=== PATIENT | female | born 1955 | race Caucasian/White ===

== ENCOUNTER 2023-10-25 09:38 | Emergency (ER) | payer MEDICARE, OTHER, SELFPAY ==
[2023-10-25 09:40] VITALS: BP 145/76
[2023-10-25 09:50] VITALS: BMI 29.6
--- NOTE | 2023-10-25 10:31 | EDRN ---
Dr. Amos in room w/ pt at this time.
--- NOTE | 2023-10-25 10:34 | ED.GENMED ---
History of Present Illness
General
Chief Complaint: Fall
Source: patient
Time Seen by Provider: 10/25/23 09:57
Travel History
Have you had any contact with someone who has COVID-19?: No
Do you have any symptoms of coronavirus? Fever > 100 degrees, chills, cough, shortness of breath, sore throat, loss of taste or smell, muscle aches, or headache?: No
History of Present Illness
History of Present Illness:
68-year-old female presents to the emergency room for evaluation after suffering a fall today. Patient states she was at the bus stop with her grandchildren when she bent over to pick up attendant both bags. She fell forward struck her left face and head.
No loss of consciousness but she felt dazed. She feels very tired. In addition to the above fall the patient's been feeling very weak. She has had a cough for the past couple weeks. The cough has been keeping her up at night. Has been seen by
her primary care doctor for this. She had pulmonary function test recently which she was told were normal.
Past History
Past History
ED Past Medical History: Other
ED Past Surgical History: Negative Cardiac
Social History
Tobacco: Non-smoker
Alcohol: None
Drug: None
Personal:
Living: with family
Employment: Not employed
Family History
Family History: Other (Noncontributory)
Phy Exam
Physical Exam
Physical Exam:
General: Awake, Alert, Oriented X3. No acute distress.
Vitals: unremarkable
Head: Atraumatic. Ecchymosis and abrasion noted right forehead and periorbital region
Eyes: Pupils equal, EOMI
Throat: Airway intact, no exudates
Neck: Trachea midline
Lungs: X-ray wheezing bilaterally
Heart: Regular rate, no murmurs
Abd: Soft, Nontender, No pulsatile mass
Neuro: Cranial nerves intact, muscle strength equal bilaterally, cerebellar exam normal
Skin: Warm, dry, no rash
Extremities: pulses equal b/l, no edema
Course
Orders/Labs/Results
Orders:
Orders
10/25/23 10:32
CT Facial Bones W/o Iv Contras Urgent
Comment:
Reason For Exam: fall, head/facial trauma
10/25/23 10:33
CT Head W/o Iv Contrast Urgent
Comment:
Reason For Exam: fall, head/facial trauma
CR Chest - 2 Views Urgent
Comment:
Reason For Exam: cough, sob
10/25/23 10:34
Ipratropium/Albuterol Sulfate [Duoneb] 3 ml INH R NOW ONE
10/25/23 11:06
COVID-19 Antigen Urgent
Source: Nasal Swab
Influenza A+B Rapid Molecular Urgent
ALEJO Source: Nasal Swab
Specimen Description:
10/25/23 11:45
Amoxicillin 875 mg/Clav 125 mg [Augmentin 875 mg/125 mg] 1 tablet PO NOW STA
Vital Signs
Initial and Last Documented VS:
Initial Vital Signs
Temp Pulse Resp BP Pulse Ox
98.2 F 76 16 145/76 98
10/25/23 09:40 10/25/23 09:40 10/25/23 09:40 10/25/23 09:40 10/25/23 09:40
Last Documented Vital Signs
Temp Pulse Resp BP Pulse Ox
98.2 F 78 16 143/75 95
10/25/23 09:40 10/25/23 12:10 10/25/23 12:10 10/25/23 12:10 10/25/23 12:10
MDM/Problems Addressed
Differential Diagnosis Includes:
Patient bone fracture, subdural, contusion, concussion
MDM/Problems Addressed:
Patient presents with injury. Imaging shows no intracranial facial show findings which might reflect acute nasal bone fracture. Patient states she does have history of a nasal bone injury years ago but this is not an acute finding on the CAT scan.
Imaging is also show sinusitis. Patient has been suffering with symptoms of sinusitis we will cover this with Augmentin. Patient stable for discharge home. Chest x-ray shows no acute abnormality
*Radiology
Radiology exam reviewed: radiology read reviewed
*Pulse Oximetry
Patient hypoxic: no
*Critical Care Note
Total Time (30-74mins, 75-104mins- exclusive of procedures): Not Applicable
ED Attending Note
-
Portions of this chart may have been created with voice recognition software.� Occasional wrong word or��sound alike� substitutions may have occurred due to the inherent limitations of voice recognition software.
Discharge Plan
Departure
Patient Disposition: Home (Routine Discharge)
Date of Disposition: 10/25/23
Time of Disposition: 11:46
Patient with high blood pressure during this ER visit?: Yes
Condition: Good
Discharge Problem:
Head injury, Contusion of face, Sinusitis, acute
Instructions: Head Injury in Adults (DC), Sinusitis, Adult ED
Prescriptions:
New
amoxicillin-pot clavulanate 875-125 mg tablet
1 tab PO BID Qty: 14 0RF
albuterol sulfate 90 mcg/actuation HFA aerosol inhaler
2 puff inhalation Q6H PRN (Reason: shortness of breath or wheezing) Qty: 8.5 0RF
fluticasone propionate 220 mcg/actuation HFA aerosol inhaler
1 inh inhalation ONCE Qty: 12 0RF
No Action
allopurinol 100 MG tablet
100 mg PO DAILY
omeprazole 40 MG capsule,delayed release(DR/EC)
40 mg PO DAILY
fluoxetine 20 MG capsule
40 mg PO DAILY
atenolol 50 MG tablet
100 mg PO DAILY
loratadine 10 MG tablet
10 mg PO DAILY
L.acidoph, paracasei,B. lactis 1 EACH capsule
1 cap PO DAILY
acetaminophen 325 MG tablet
325 mg PO PRN PRN (Reason: pain)
Bactrim:
sulfamethoxazole-trimethoprim 1 TABLET tablet
1 tab PO BID Qty: 14 0RF
Referrals:
Mary Ann Hloden MD [Family Provider] -
Interventions
Interventions:
*Risk Screen - Suicide Last Done: 10/25/23 09:50
*General Assessment Last Done: 10/25/23 09:50
*Neglect/Abuse Screening Last Done: 10/25/23 09:50
ED- Fall Risk Assessment Last Done: 10/25/23 09:50
*ED COVID-19 Vaccine History Last Done: 10/25/23 09:50
*Nursing Disposition Last Done: 10/25/23 12:10
ED-Musculoskeletal Assessment Last Done: 10/25/23 09:50
ED- Neurological Assessment Last Done: 10/25/23 09:50
ED-Skin Assessment Last Done: 10/25/23 09:50
Discharge Date and Time
Discharge Date/Time: 10/25/23 12:12
[2023-10-25] MEDS: DUONEB 3 ML INH (11:14)
[2023-10-25 11:15] VITALS: BP 153/81
[2023-10-25 11:27] LABS: COVID-19 Antigen Negative (Negative)
[2023-10-25] MEDS: AUGMENTIN 875 MG/125 MG 1 TABLET PO (12:06)
[2023-10-25 12:10] VITALS: BP 143/75
== END 2023-10-25 12:12 | disposition home or self-care (01) ==
LOC: EMR 09:38
PROVIDERS: EMERGENCY PHYSICIAN Emergency Medicine; FAMILY PHYSICIAN Family Medicine
DX: J01.90 Acute sinusitis, unspecified (principal); S00.83XA Contusion of other part of head, initial encounter; S00.81XA Abrasion of other part of head, initial encounter; S09.90XA Unspecified injury of head, initial encounter; R05.9 Cough, unspecified; R53.1 Weakness; W18.39XA Other fall on same level, initial encounter; Y92.89 Other specified places as the place of occurrence of the external cause; R03.0 Elevated blood-pressure reading, without diagnosis of hypertension; Z91.041 Radiographic dye allergy status
CPT/HCPCS: 99284; 94640; 70450; 70486; 71046; 87502; 87811

== ENCOUNTER 2024-09-14 18:17 | Emergency (ER) | payer MEDICARE, OTHER, SELFPAY ==
[2024-09-14 18:26] VITALS: BP 113/69
[2024-09-14 18:55] LABS: % Basophils 0.1 % (0-2); % Immature Granulocytes 0.5 % (0-0.5); % Lymphocytes 11.5 % (20.5-51.1); % Monocytes 4.3 % (1.7-9.3); % Neutrophils 83.6 % (42.2-75.2); Absolute Monocytes 0.4 10^3/uL (0.1-0.6); Absolute Neutrophils 6.9 10^3/uL (1.4-6.5); Hematocrit 37.9 % (37.0-47.0); Hemoglobin 13.4 g/dL (12.0-16.0); Mean Corp Hgb Conc. 35.4 g/dL (33.0-37.0); Mean Corpuscular Hgb 32.4 pg (27.0-31.0); Mean Corpuscular Volume 91.5 fL (81.0-99.0); Nucleated Red Blood Cells % 0 %; Platelet Count 198 10^3/uL (130-400); Red Blood Cell Count 4.14 10^6/uL (4.20-5.40); Red Cell Dist. Width 13.2 % (11.5-14.5); White Blood Cell Count 8.2 10^3/uL (4.8-10.8)
[2024-09-14 19:09] LABS: ALT (SGPT) 31 U/L (0-35); AST (SGOT) 40 U/L (14-36); Albumin 4.1 g/dl (3.5-5.0); Alkaline Phosphatase 77 U/L (38-126); Blood Urea Nitrogen 13 mg/dl (7-17); Calcium 8.8 mg/dl (8.4-10.2); Carbon Dioxide 24 mmol/L (22-30); Chloride 97 mmol/L (98-107); Glucose 140 mg/dl (70-99); Potassium 3.4 mmol/L (3.5-5.1); Sodium 132 mmol/L (135-145); Total Bilirubin 0.7 mg/dl (0.2-1.3); Total Protein 6.5 g/dl (6.3-8.2); eGFR > 60.00
[2024-09-14 19:17] LABS: COVID-19 Antigen Negative (Negative)
[2024-09-14 22:45] VITALS: BP 115/82
--- NOTE | 2024-09-14 23:27 | ED.GENMED ---
History of Present Illness
General
Chief Complaint: Cold/Flu/URI Symptoms
Source: patient
Exam Limitations: none
Time Seen by Provider: 09/14/24 23:08
Nursing documentation reviewed up to this point in time: agreed with
History of Present Illness
History of Present Illness:
Pleasant 69-year-old female presents to department with bodyaches, cough and generalized weakness. She states that this has been present for the last week. Her kids and grandchildren live with her and states that they all have similar complaints.
She was at urgent care yesterday and tested negative for flu and RSV. Today she went to her physician and diagnosed with a viral illness. She came into the emergency department because she is not improving. She denies fever or productive cough.
She is a non-smoker.
Past History
Past History
ED Past Medical History: Other
ED Past Surgical History: Negative Cardiac
Social History
Tobacco: Non-smoker
Alcohol: None
Drug: None
Personal:
Living: with family
Employment: Not employed
Family History
Family History: Other (Noncontributory)
Review of Systems
Review of Systems
Allergies reviewed?: Yes
All Other Systems: ROS reviewed and negative except as documented in HPI and ROS
Constitutional: Reports no symptoms
EENT: Reports no symptoms
Respiratory: Reports cough; Denies trouble breathing
Cardiac: Denies chest pain
ABD/GI: Reports no symptoms
: Reports no symptoms
Musculoskeletal: Reports no symptoms
Skin: Reports no symptoms
Neurological: Reports weakness
Endocrine: Reports no symptoms
Hematologic/Lymphatic: Reports no symptoms
Psychiatric: Reports no symptoms
Phy Exam
General Physical Exam
General Presentation: well appearing and no apparent distress
General Skin: warm and dry
General Habitus: normal
General Mental: alert
General Hydration: appears well hydrated
ENT Exam
ENT Exam: EOMI, pharynx normal, neck supple and normocephalic
Eye Exam
Eye Exam: PERRL, cornea clear and conjunctiva normal
Cardiovascular Exam
Cardiovascular Exam: regular rate/rhythm, no edema, no murmur and normal peripheral pulses
Pulmonary Exam
Pulmonary Exam: no respiratory distress and generalized wheezing
Cough: coarse cough
Respirations: controlled ventilations
Breath Sounds: Wheeze: left lower and right lower
Gastrointestinal Exam
Gastrointestinal Exam: normal bowel sounds, non tender, soft, no organomegaly, no pulsatile mass and non distended
Neurological Exam
Neurological Exam: alert, oriented x3, no motor deficits and speech normal
Musculoskeletal Exam
Musculoskeletal Exam: full ROM and no edema
Skin Exam
Skin Exam: normal color, warm/dry, no rash and no petechia
Psychiatric Exam
Psychiatric Exam: normal mood/affect
Course
Orders/Labs/Results
Orders:
Orders
09/14/24 18:42
COVID-19 Antigen Urgent
Source: Nasal Swab
Complete Blood Count/With Diff Urgent
Comprehensive Metabolic Panel Urgent
Influenza A+B Rapid Molecular Urgent
ALEJO Source: Nasal Swab
Specimen Description:
09/14/24 23:11
Urinalysis Reflex To Culture Urgent
Date Specimen was Collected: 09/15/24
Time Specimen was Collected: 02:38
0.9% Sodium Chloride 1000 ml [Nss] 1,000 ml IV BOLUS
09/14/24 23:27
CR Chest - 2 Views Urgent
Comment:
Reason For Exam: cough
09/15/24 02:42
Urine Microscopic Reflex Cult Urgent
Urine Culture Urgent
ALEJO Source: U
Specimen Description:
Date Specimen was Collected: 09/15/24
Time Specimen was Collected: 02:38
09/15/24 03:40
Fosfomycin [Monurol] 3 gm PO ONCE ONE
Abnormal Lab Results
09/14/24 09/15/24
18:42 02:42
RBC 4.14 L 10^6/uL
(4.20-5.40)
MCH 32.4 H pg
(27.0-31.0)
Absolute Neuts (auto) 6.9 H 10^3/uL
(1.4-6.5)
Absolute Lymphs (auto) 1.0 L 10^3/uL
(1.2-3.4)
Neutrophils % 83.6 H %
(42.2-75.2)
Lymphocytes % 11.5 L %
(20.5-51.1)
Sodium 132 L mmol/L
(135-145)
Potassium 3.4 L mmol/L
(3.5-5.1)
Chloride 97 L mmol/L
(98-107)
Glucose 140 H mg/dl
(70-99)
AST 40 H U/L
(14-36)
Ur Occult Blood Reflex 2+ A
(Negative)
Urine Nitrite (Reflex) Positive A
(Negative)
Leukocyte Esterase Rfl 3+ A
(Negative)
Urine RBC 3-6 A /HPF
(0-2)
Urine WBC (Reflex) 70-80 A /HPF
(0-5)
Urine Bacteria (Reflex) Many A
(Negative)
Urine Albumin (Reflex) 1+ A
(Neg - Trace)
09/14/24 18:42
09/14/24 18:42
Vital Signs
Initial and Last Documented VS:
Initial Vital Signs
Temp Pulse Resp BP Pulse Ox
99.5 F 79 16 113/69 98
09/14/24 18:26 09/14/24 18:26 09/14/24 18:26 09/14/24 18:26 09/14/24 18:26
Last Documented Vital Signs
Temp Pulse Resp BP Pulse Ox
99.5 F 69 18 138/60 95
09/14/24 18:26 09/14/24 22:45 09/14/24 22:45 09/15/24 01:00 09/15/24 01:15
*Critical Care Note
Total Time (30-74mins, 75-104mins- exclusive of procedures): Not Applicable
ED Attending Note
-
Portions of this chart may have been created with voice recognition software.� Occasional wrong word or��sound alike� substitutions may have occurred due to the inherent limitations of voice recognition software.
Discharge Plan
Departure
Patient Disposition: Home (Routine Discharge)
Date of Disposition: 09/15/24
Time of Disposition: 03:41
Patient with high blood pressure during this ER visit?: Yes
Condition: Good
Discharge Problem:
Viral syndrome, Acute UTI
Instructions: Urinary tract infections in adults, Viral Upper Respiratory Infection, Adult (DC), BLOOD PRESSURE
Prescriptions:
No Action
allopurinol 100 MG tablet
100 mg PO DAILY
omeprazole 40 MG capsule,delayed release(DR/EC)
40 mg PO DAILY
fluoxetine 20 MG capsule
40 mg PO DAILY
atenolol 50 MG tablet
100 mg PO DAILY
loratadine 10 MG tablet
10 mg PO DAILY
L.acidoph,paracasei,B.animalis 1 EACH capsule
1 cap PO DAILY
acetaminophen 325 MG tablet
325 mg PO PRN PRN (Reason: pain)
Bactrim:
sulfamethoxazole-trimethoprim 1 TABLET tablet
1 tab PO BID Qty: 14 0RF
amoxicillin-pot clavulanate 875-125 mg tablet
1 tab PO BID Qty: 14 0RF
albuterol sulfate 90 mcg/actuation HFA aerosol inhaler
2 puff inhalation Q6H PRN (Reason: shortness of breath or wheezing) Qty: 8.5 0RF
fluticasone propionate 220 mcg/actuation HFA aerosol inhaler
1 inh inhalation ONCE Qty: 12 0RF
Referrals:
Mary Ann Holden MD [Family Provider] -
Activity Restrictions/Additional Instructions:
You received a one-time dose of antibiotic for your UTI. No further prescription necessary.
It was a pleasure meeting you and taking part in your care. We hope for your continued healing and wellness.
Please read discharge instructions in their entirety. However, they are for general education and may not describe your exact diagnosis at discharge. Information on your ER visit and medical conditions were discussed with you along with appropriate
follow up information...
If indicated, please take your medications as instructed and indicated on discharge paperwork.
Please schedule a follow up appointment as directed. Call to schedule an appointment
Please return to the emergency department with ANY change in, persisting, or worsening of symptoms. If any of your symptoms do not improve, or persist, or become more severe within 6-12 hours, please return to the emergency department for further
care.
Please return to the emergency department if you develop a headache, neck pain/stiffness, fever greater than 100.4F, chest pain, shortness of breath, persistent nausea, vomiting, slurred speech, difficulty walking, numbness/tingling, weakness, signs
of infection or any other symptoms that are worrisome to you.
If you have any questions or concerns please do not hesitate to call the Hospital at or E-mail me directly at [email or web address]
Interventions
Interventions:
*Risk Screen - Suicide Last Done: 09/14/24 18:26
*General Assessment Last Done: 09/14/24 23:38
*Neglect/Abuse Screening Last Done: 09/14/24 18:26
ED- Fall Risk Assessment Last Done: 09/14/24 23:38
*ED COVID-19 Vaccine History Last Done: 09/14/24 23:38
ED- Pulmonary Assessment Last Done: 09/14/24 23:38
Discharge Date and Time
Print Language: TELUGU
[2024-09-14 23:38] VITALS: BMI 28.9
[2024-09-14 23:52] VITALS: BP 111/68
[2024-09-15] VITALS: BP 118/66
[2024-09-15] MEDS: NSS 1000 IV
[2024-09-15 01:00] VITALS: BP 138/60
[2024-09-15 02:00] VITALS: BP 115/65
[2024-09-15 03:09] VITALS: BP 109/51
[2024-09-15 03:17] LABS: Urine Albumin 1+ (Neg - Trace); Urine Bilirubin Negative (Negative); Urine Character Slightly Cloudy (Clear); Urine Color Yellow; Urine Glucose Negative (Negative); Urine Ketone Negative (Negative); Urine Leukocyte 3+ (Negative); Urine Nitrite Positive (Negative); Urine Occult Blood 2+ (Negative); Urine Specific Gravity 1.015 (<1.030); Urine Urobilinogen Negative (Neg - 1+)
[2024-09-15 03:27] LABS: Urine Urothelial Cell 0-2 /LPF (FEW); Urine White Cell 70-80 /HPF (0-5)
[2024-09-15 03:28] LABS: Urine Bacteria Many (Negative)
[2024-09-15] MEDS: MONUROL 3 GM PO (03:49)
== END 2024-09-15 04:20 | disposition home or self-care (01) ==
LOC: EMR 18:17
PROVIDERS: Student in an Organized Health Care Education/Training Program; EMERGENCY PHYSICIAN Student in an Organized Health Care Education/Training Program; FAMILY PHYSICIAN Family Medicine
DX: B34.9 Viral infection, unspecified (principal); N39.0 Urinary tract infection, site not specified
CPT/HCPCS: 99284; 96360; 71046; 80053; 81003; 81015; 85025; 87086; 87502; 87811